=== PATIENT | male | born 1975 | race Caucasian/White ===

== ENCOUNTER 2016-05-01 22:13 | Emergency (ER) | payer MEDICAID ==
[2016-05-01] MEDS ORDERED: ONDANSETRON ODT 4 MG Prepack 2 TL STA (22:25)
[2016-05-01] MEDS ORDERED: CLINDAMYCIN 150 MG CAPSULE PO STA (22:25)
[2016-05-01] MEDS ORDERED: HYDROcod/ACET 5/325 Prepack 6 PO STA (22:25)
[2016-05-01] MEDS ORDERED: CLINDAMYCIN 150 MG CAPSULE PO ONE (22:36)
[2016-05-01] MEDS ORDERED: ONDANSETRON ODT 4 MG Prepack 2 TL ONE (22:36)
[2016-05-01] MEDS ORDERED: HYDROcod/ACET 5/325 Prepack 6 PO ONE (22:36)
== END 2016-05-01 22:43 | disposition home or self-care (01) ==
DX: K04.7 Periapical abscess without sinus (principal); K02.9 Dental caries, unspecified; R03.0 Elevated blood-pressure reading, without diagnosis of hypertension
CPT/HCPCS: 99283; A9270

== ENCOUNTER 2016-05-02 | Emergency (ER) | payer MEDICAID | END 2016-05-02 11:28 | disposition left against medical advice (07) | DX: Z53.21 Procedure and treatment not carried out due to patient leaving prior to being seen by health care provider (principal) ==

== ENCOUNTER 2016-05-03 | Emergency (ER) | END 2016-05-03 02:36 | disposition left against medical advice (07) ==

== ENCOUNTER 2016-05-03 10:24 | Emergency (ER) | payer MEDICAID ==
[2016-05-03] MEDS ORDERED: oxyCOD/ACETAMIN 5 MG/325 MG TABLET PO STA (13:11)
[2016-05-03] MEDS ORDERED: ONDANSETRON ODT 4 MG TABLET TL STA (13:11)
[2016-05-03] MEDS ORDERED: CEPHALEXIN 250 MG CAPSULE PO STA (13:12)
[2016-05-03] MEDS ORDERED: oxyCOD/ACETAMIN 5 MG/325 MG TABLET PO ONE (13:15)
[2016-05-03] MEDS ORDERED: CEPHALEXIN 250 MG CAPSULE PO ONE (13:16)
[2016-05-03] MEDS ORDERED: ONDANSETRON ODT 4 MG TABLET ONE (13:16)
== END 2016-05-03 13:33 | disposition home or self-care (01) ==
DX: K04.7 Periapical abscess without sinus (principal); K02.9 Dental caries, unspecified; K08.89 Other specified disorders of teeth and supporting structures; F17.200 Nicotine dependence, unspecified, uncomplicated
CPT/HCPCS: 99283; A9270; Q0162